=== PATIENT | female | born 1950 | race Caucasian/White ===

== ENCOUNTER 2016-11-18 15:24 | Emergency (ER) | payer MEDICARE ==
[2016-11-18 15:39] VITALS: BP 128/56
[2016-11-18] MEDS ORDERED: Lidocaine 1% 5ml(IM or SUTURE)(PAIN CLINIC) ONE (15:56)
--- NOTE | 2016-11-18 16:18 | ED Physician Documentation ---
Hand Injury - HPI Stated Complaint: FB in finger Chief Complaint: Hand Injury Additional Information: digging up a stump with gloves on, something sharp poked thru her glove and into her finger. she tried to remove at home but unsuccessful Onset: just prior to arrival Where: home Severity: mild Context: laceration Location of Injury: L fingers Modifying Factors: none Further Comments: no - ROS CONST: no problems GI/: denies: problems urinating NEURO: none CVS/RESP: none LNMP: denies: EYES/ENT: none MS/SKIN/LYMPH: none - PAST HX Past History: none Allergies/Adverse Reactions: Allergies Allergy/AdvReac Type Severity Reaction Status Date / Time Sulfa (Sulfonamide Allergy Verified 11/18/16 15:34 Antibiotics) [Sulfa(Sulfonamide Antibiotics)] Home Medications: Ambulatory Orders Medication Instructions Recorded Furosemide [Lasix] 40 mg PO QD 01/12/13 - SOCIAL HX Smoking History: non-smoker Alcohol Use: none Drug Use: none - FAMILY HX Family History: none - VITAL SIGNS Vital Signs: Vital Signs Temp Pulse Resp BP Pulse Ox 98.5 F 61 18 128/56 98 11/18/16 15:35 11/18/16 15:35 11/18/16 15:35 11/18/16 15:35 11/18/16 15:35 - REVIEWED ASSESSMENTS Nursing Assessment Reviewed: Yes Vitals Reviewed: Yes Procedures Site: L 3rd digit Blade Size: 15 I & D Procedure: sterile drapes applied Progress: alcohol prep, after 1% lidocaine digital block. Magnifying glasses required, 1mm x 4 mm sliver of glass removed after opening with 15 blade. ED Results Lab/Radiology - Orders Orders: ED Orders Category Date Time Status Lidocaine 1% 5ml(IM or SUTURE) [Xylocaine] Med 11/18/16 15:56 Discontinued 50 mg .ROUTE .STK-MED ONE Lidocaine 1% 5ml(IM or SUTURE) [Xylocaine] Med 11/18/16 16:15 Once 50 mg IJ NOW ONE Hand Injury Physical Exam - Exam General Appearance: no acute distress Hand: other (FB in tip L 3rd digit). No: no evidence of FB Wrist: normal inspection Neuro: sensation nml Vascular: no vascular compromise Tendons: tendon function nml Forearm/Elbow/Arm: uninjured above wrist Skin: warm/dry, normal color Head/ENT: nml inspection Neck/Back: nml inspection Abdomen: non-tender Discharge Clincal Impression: Foreign body of finger of left hand Qualifiers: Encounter type: initial encounter Qualified Code(s): S60.459A - Superficial foreign body of unspecified finger, initial encounter Home Medications: Ambulatory Orders Furosemide [Lasix] 40 mg PO QD 01/12/13 Condition: Good Disposition: 01 HOME, SELF-CARE Decision to Admit: NO Date of Decison to Admit: 11/18/16 Decision Time: 16:25
[2016-11-18] MEDS: Lidocaine 1% 5ml(IM or SUTURE)(PAIN CLINIC) IJ ONE (16:21)
== END 2016-11-18 16:35 | disposition home or self-care (01) ==
LOC: ED 15:24
DX: S61.243A Puncture wound with foreign body of left middle finger without damage to nail, initial encounter (principal); X58.XXXA Exposure to other specified factors, initial encounter; Y93.9 Activity, unspecified; Y99.9 Unspecified external cause status
CPT/HCPCS: 10120; 99283

== ENCOUNTER 2018-03-14 17:49 | Emergency (ER) | payer MEDICARE, OTHER ==
--- NOTE | 2018-03-14 18:05 | ED Physician Documentation ---
Upper Respiratory Symptoms - HISTORIAN Historian: patient - HPI Chief Complaint: Cough/ Upper Respiratory Additional Information: 67yo who had a cough for several days, productive of some creamy color material. Has been wheezing some. No fever or chills. Has some back chest pain from coughing. Has been rattling since this am. Has a sore thorat. Has been having some nasal drainage (clear). Has a hx of asthma, CHF (has been stable). Associated Symptoms: sweating. denies: fever, chills Worsened by Deep Breath: Yes - ROS CONST/EYES: denies: weakness LYMPH: denies: leg swelling GI/: none - PAST HX Lung Disease: asthma Surgeries/Procedures: cholecystectomy, hysterectomy, , other (cervicsl fusion, ACL repair, ) Immunizations: UTD Allergies/Adverse Reactions: Allergies Allergy/AdvReac Type Severity Reaction Status Date / Time Sulfa (Sulfonamide Allergy Verified 03/14/18 18:14 Antibiotics) [Sulfa(Sulfonamide Antibiotics)] Home Medications: Ambulatory Orders Medication Instructions Recorded Furosemide [Lasix] 40 mg PO QD 01/12/13 Azithromycin 250 mg PO D #4 tablet 03/14/18 Hydrocodone/Chlorphen P-Stirex 5 ml PO BID #120 ml 03/14/18 [Tussionex Pennkinetic Susp] - SOCIAL HX Smoking History: non-smoker Alcohol Use: none Drug Use: none - FAMILY HX Family History: other (asthma) - VITAL SIGNS Vital Signs: Vital Signs Temp Pulse Resp BP Pulse Ox 98.2 F 71 18 130/75 96 03/14/18 17:50 03/14/18 21:47 03/14/18 21:47 03/14/18 21:47 03/14/18 21:47 - REVIEWED ASSESSMENTS Nursing Assessment Reviewed: Yes Vitals Reviewed: Yes Progress - Progress Progress: patient states that she is some better with HFN treatment. ED Results Lab/Radiology - Lab Results Lab Results: Lab Results 03/14/18 03/14/18 18:35 18:35 WBC 10.40 K/ul K/ul (4.00-12.00) RBC 4.70 M/ul M/ul (3.90-5.20) Hgb 14.1 g/dL g/dL (12.0-16.0) Hct 42.1 % % (34.5-46.5) MCV 89.6 fl fl (80.0-100.0) MCH 30.1 pg pg (28.0-34.0) MCHC 33.6 g/dL g/dL (30.0-36.0) RDW 12.9 % % (11.3-14.3) Plt Count 337 K/mm3 K/mm3 (130-400) Neut % (Auto) 77.4 % % (39.0-79.0) Lymph % (Auto) 15.6 % L % (16.0-50.0) [place] % (Auto) 5.1 % % (0.0-11.0) Eos % (Auto) 0.3 % % (0.0-6.8) Baso % (Auto) 0.3 (0.0-1.5) Neut # (Auto) 8.1 # k/uL H # k/uL (1.4-7.7) Lymph # (Auto) 1.6 # k/uL # k/uL (0.6-4.0) [place] # (Auto) 0.5 # k/uL # k/uL (0.0-0.9) Eos # (Auto) 0.0 # k/uL # k/uL (0.0-0.6) Baso # (Auto) 0.0 # k/uL # k/uL (0.0-0.5) Reactive Lymphs % 1.3 % % (0.0-5.0) Reactive Lymphs # 0.1 # k/uL # k/uL (0.0-0.8) Sodium 139 mmol/L mmol/L (136-145) Potassium 3.8 mmol/L mmol/L (3.5-5.1) Chloride 102 mmol/L mmol/L (98-107) Carbon Dioxide 25 mmol/L mmol/L (22-30) BUN 22 mg/dL H mg/dL (7-17) Creatinine 0.90 mg/dL mg/dL (0.52-1.04) Estimated Creat Clear 70 Est GFR ( Amer) > 60 (60 - ) Est GFR (Non-Af Amer) > 60 (60 - ) Glucose 126 mg/dL H mg/dL (74-106) Calcium 9.1 mg/dL mg/dL (8.4-10.2) Total Bilirubin 0.4 mg/dL mg/dL (0.2-1.3) AST 25 U/L U/L (15-46) ALT 27 U/L U/L (13-69) Alkaline Phosphatase 69 U/L U/L (38-126) Total Protein 7.9 g/dL g/dL (6.3-8.2) Albumin 4.4 g/dL g/dL (3.5-5.0) - Radiology Radiology Impressions: Chest 2 views Date of Exam: March 14, 2018. History: COUGH X 5 DAYS (Hx) / ITS.REASON cough Findings: No comparison studies are provided. The cardiac and mediastinal silhouettes are normal. The lungs are clear. There is no evidence of pulmonary infiltrate or pleural effusion. The trachea is midline and aortic arch contour is normal. The pulmonary vascularity is within normal limits. Cervical fusion plate and screws are noted. There is degenerative thoracic spondylosis. Impression: No acute cardiopulmonary abnormality. - Orders Orders: ED Orders Category Date Time Status Place IV Lock 1T Care 03/14/18 18:16 Active CHEST 2VIEW [RAD] Routine Exams 03/14/18 Completed CBC/PLATELET/DIFF Routine Lab 03/14/18 18:35 Completed CMP Routine Lab 03/14/18 18:35 Completed Azithromycin [Zithromax] Med 03/14/18 19:41 Discontinued 500 mg PO NOW ONE Ipratropium/Albuterol Sulfate [Duoneb] Med 03/14/18 18:15 Discontinued 3 ml NEB NOW ONE methylPREDNISolone SOD SUCC [Solu-MEDROL] Med 03/14/18 18:15 Discontinued 125 mg IVP NOW ONE Upper Respiratory Symptoms - EXAM General Appearance: alert, mild distress EENT: nml ENT inspection, ear nml, nose nml, pharynx nml. No: pain over sinuses Neck: normal inspection, thyroid normal, supple Respiratory: no resp. distress, no pain on inspiration, speaks full sentences, respiratory distress (mild), wheezes (with forced expiration) Abdomen: non-tender, no organomegaly, nml bowel sounds, no distention CVS: reg rate & rhythm, heart sounds normal, equal pulses, no murmur Skin: color nml, no rash, warm,dry. No: rash Extremities: non-tender, normal range of motion, no edema Neuro/Psych: oriented x3, depressed mood/affect Discharge Clincal Impression: Bronchitis Prescriptions: Azithromycin 250 mg PO D #4 tablet Hydrocodone/Chlorphen P-Stirex [Tussionex Pennkinetic Susp] 5 ml PO BID #120 ml Referrals: Nate Baldwin MD [Primary Care Provider] - 2 Days Additional Instructions: Continue taking the prednisone that you have,. Take the azithromycin as directed. Take tussionex 1 tsp twice a day as needed for cough. Continue to use your inhaler as needed. If you are not improving to see your primary care provider or return to the ED. Condition: Stable Disposition: 01 HOME, SELF-CARE Decision to Admit: NO Date of Decison to Admit: 03/14/18 Decision Time: 19:46
[2018-03-14] MEDS ORDERED: methylPREDNISolone SOD SUCC 125 MG/2 ML VIAL IVP ONE (18:15)
[2018-03-14] MEDS ORDERED: IPRATROPIUM/ALBUTEROL SULFATE 3 ML AMPUL.NEB NEB ONE (18:15)
[2018-03-14 19:01] LABS: eGFR (African) > 60; eGFR (Non-African) > 60
[2018-03-14 19:03] LABS: BASOPHILS % 0.3 (0.0-1.5); EOSINOPHILS % 0.3 % (0.0-6.8); MEAN CORPUSCULAR HEMOGLOBIN 30.1 pg (28.0-34.0); MEAN CORPUSCULAR VOLUME 89.6 fl (80.0-100.0); MONOCYTES % 5.1 % (0.0-11.0); NEUTROPHILS # 8.1 # k/uL (1.4-7.7)
[2018-03-14] MEDS ORDERED: AZITHROMYCIN 250 MG TABLET PO ONE (19:41)
--- NOTE | 2018-03-14 20:13 | Diagnostic Imaging Report ---
CAREN CAST [facility] [address] [facility] [address] [address] Report Submission Date: Mar 14, 2018 6:50:17 PM CDT Patient Study Name: LAYNE MUSTAFA Date: Mar 14, 2018 6:23:15 PM CDT Modality Type: DX Gender: F Description: CHEST : 46 Institution: [facility] Physician: CAREN CAST Chest 2 views Date of Exam: March 14, 2018. History: COUGH X 5 DAYS (Hx) / ITS.REASON cough Findings: No comparison studies are provided. The cardiac and mediastinal silhouettes are normal. The lungs are clear. There is no evidence of pulmonary infiltrate or pleural effusion. The trachea is midline and aortic arch contour is normal. The pulmonary vascularity is within normal limits. Cervical fusion plate and screws are noted. There is degenerative thoracic spondylosis. Impression: No acute cardiopulmonary abnormality. Electronically signed on Mar 14, 2018 6:50:17 PM CDT by: Cari PETERS
[2018-03-14 21:50] VITALS: BP 130/75
== END 2018-03-14 20:14 | disposition home or self-care (01) ==
LOC: ED 17:49
DX: J40 Bronchitis, not specified as acute or chronic (principal)
CPT/HCPCS: 71046; 80053; 85025; J2930; 94640; 96374; S1016

== ENCOUNTER 2018-07-06 12:30 | Emergency (ER) | payer OTHER ==
[2018-07-06 13:03] LABS: BASOPHILS % 0.4 (0.0-1.5); EOSINOPHILS % 1.4 % (0.0-6.8); MEAN CORPUSCULAR HEMOGLOBIN 28.8 pg (28.0-34.0); MONOCYTES % 7.4 % (0.0-11.0); NEUTROPHILS # 4.9 # k/uL (1.4-7.7)
[2018-07-06 13:10] LABS: eGFR (Non-African) > 60
--- NOTE | 2018-07-06 13:16 | Diagnostic Imaging Report ---
FERNANDO KINSEY (INSTRUCTIONAL ASSISTANT) - ER [facility] [address] [facility] [address] [address] Report Submission Date: Jul 06, 2018 1:16:08 PM HEAD OF ART Patient Study Name: LAYNE MUSTAFA Date: Jul 06, 2018 1:02:03 PM HEAD OF ART Modality Type: CT\SR Gender: F Description: CT BRAIN W/O CONTRAST : 46 Institution: [facility] Physician: FERNANDO KINSEY ([place]) - ER HEAD CT WITHOUT CONTRAST HISTORY: Syncopal episode. Fall. COMPARISON: None TECHNIQUE: Axial images were obtained from the skullbase to the vertex without IV contrast. FINDING: The ventricular system is normal in size and configuration. There is normal parenchymal attenuation. There is no positive mass effect or intra/extra-axial hemorrhage. Visualized paranasal sinuses and mastoid air cells are clear. The calvarium is intact. IMPRESSION: NO INTRACRANIAL ABNORMALITY. Electronically signed on Jul 06, 2018 1:16:08 PM HEAD OF ART by: Delia PETERS
[2018-07-06] MEDS: fentaNYL CITRATE/PF 100 MCG/2 ML INJ. IVP ONE ×2 (13:25→14:50)
--- NOTE | 2018-07-06 13:33 | Diagnostic Imaging Report ---
FERNANDO KINSEY (CAR SPOTTER) - ER [facility] [address] [facility] [address] Report Submission Date: Jul 06, 2018 1:30:40 PM MELTER CLERK Patient Study Name: LAYNE MUSTAFA Date: Jul 06, 2018 12:42:33 PM MELTER CLERK Modality Type: DX Gender: F Description: LOWER EXTREMITY : 46 Institution: [facility] Physician: FERNANDO KINSEY (CAR SPOTTER) - ER Right ankle History: Status post fall Three views of the right ankle were obtained which demonstrate the presence of an acute spiral type fracture involving the distal fibula. The distal fracture fragment has displaced laterally by approximately 3 mm. The talar dome and ankle mortise are intact. There is soft tissue swelling about the ankle. Impression: Acute spiral type fracture of the distal fibula as described. Mild soft tissue swelling about the ankle. Electronically signed on Jul 06, 2018 1:30:40 PM MELTER CLERK by: Delia PETERS
--- NOTE | 2018-07-06 13:34 | Diagnostic Imaging Report ---
FERNANDO KINSEY (SPORTS BROADCASTING INTERNSHIP) - ER [facility] [address] [facility] [address] [address] Report Submission Date: Jul 06, 2018 1:33:28 PM SINTER MACHINE OPERATOR Patient Study Name: LAYNE MUSTAFA Date: Jul 06, 2018 12:45:39 PM SINTER MACHINE OPERATOR Modality Type: DX Gender: F Description: LOWER EXTREMITY : 46 Institution: [facility] Physician: FERNANDO KINSEY ([place]) - ER Right tibia and fibula History: Status post fall AP and lateral projections of the right tibia and fibula were obtained which demonstrate hardware associated with the knee consistent with an ACL repair. Otherwise, assessment of the knee is limited. As described in the ankle report, there is an acute and minimally displaced spiral type fracture of the distal fibula. No additional osseous abnormalities of the tibia or fibula are noted. Impression: Hardware from ACL repair. Otherwise, assessment of the knee is limited. Acute and minimally displaced spiral type fracture of the distal fibula as described in the ankle report. Electronically signed on Jul 06, 2018 1:33:28 PM SINTER MACHINE OPERATOR by: Delia PETERS
--- NOTE | 2018-07-06 14:25 | ED Physician Documentation ---
Syncope/Near Syncope - HISTORIAN Historian: patient, paramedics - HPI Stated Complaint: Syncope Chief Complaint: Syncope Witnessed: Yes Witnessed By: friend Position at Time of Episode: sitting Symptoms Prior to Episode: light-headed, palpitations ("my pulse felt low") Location of Injury: head, RLE Further Comments: yes (67 year old female patient brought in by EMS from [facility]. 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 Patient struck back of head on cement floor, C/O right ankle pain -unable to bear weight on right ankle. Denies SOB, CP, nausea at this time. Rate right ankle pain 02/27.) - ROS CONST: denies: recent illness, fever, cough, chills EYES/ENT: none GI/: denies: diarrhea, black stools, problems urinating LNMP: denies: , post menopausal, missed periods, heavy periods, abnml bleed, irregualar periods, other MS/SKIN/LYMPH: denies: joint pain, leg swelling, rash, swollen glands, ankle swelling, other NEURO/PSYCH: denies: confusion, anxiety, depression, other - PAST HX Cardiac Disease: CHF (remote history of CHF) Other History: Other (osteoporosis) Surgeries/Procedures: other (c-spine fusion) Allergies/Adverse Reactions: Allergies Allergy/AdvReac Type Severity Reaction Status Date / Time Sulfa (Sulfonamide Allergy Verified 07/06/18 13:28 Antibiotics) [Sulfa(Sulfonamide Antibiotics)] Home Medications: Ambulatory Orders Medication Instructions Recorded NK 07/06/18 - SOCIAL HX Smoking History: non-smoker - FAMILY HX Family History: denies: none - VITAL SIGNS Vital Signs: Vital Signs Temp Pulse Resp BP Pulse Ox 97.9 F 60 20 165/74 97 07/06/18 12:37 07/06/18 14:00 07/06/18 12:37 07/06/18 12:37 07/06/18 14:00 - REVIEWED ASSESSMENTS Nursing Assessment Reviewed: Yes Vitals Reviewed: Yes Progress - Progress Progress: Reviewed and xray findings with patient. Recommend 24 hour observation stay for further evaluation and monitoring; ortho consult. Patient prefer [facility]. 1350 Call to [facility], patient accepted by Dr Merchant. - EKG/XRAY/CT EKG: rhythm (SB, rate 58) ED Results Lab/Radiology - Lab Results Lab Results: Lab Results 07/06/18 07/06/18 12:42 12:42 WBC 8.90 K/ul K/ul (4.00-12.00) RBC 4.67 M/ul M/ul (3.90-5.20) Hgb 13.4 g/dL g/dL (12.0-16.0) Hct 40.2 % % (34.5-46.5) MCV 86.0 fl fl (80.0-100.0) MCH 28.8 pg pg (28.0-34.0) MCHC 33.4 g/dL g/dL (30.0-36.0) RDW 12.6 % % (11.3-14.3) Plt Count 240 K/mm3 K/mm3 (130-400) Neut % (Auto) 55.3 % % (39.0-79.0) Lymph % (Auto) 35.5 % % (16.0-50.0) [place] % (Auto) 7.4 % % (0.0-11.0) Eos % (Auto) 1.4 % % (0.0-6.8) Baso % (Auto) 0.4 (0.0-1.5) Neut # (Auto) 4.9 # k/uL # k/uL (1.4-7.7) Lymph # (Auto) 3.2 # k/uL # k/uL (0.6-4.0) [place] # (Auto) 0.7 # k/uL # k/uL (0.0-0.9) Eos # (Auto) 0.1 # k/uL # k/uL (0.0-0.6) Baso # (Auto) 0.0 # k/uL # k/uL (0.0-0.5) Sodium 143 mmol/L mmol/L (136-145) Potassium 4.0 mmol/L mmol/L (3.5-5.1) Chloride 108 mmol/L H mmol/L (98-107) Carbon Dioxide 26 mmol/L mmol/L (22-30) BUN 17 mg/dL mg/dL (7-17) Creatinine 0.90 mg/dL mg/dL (0.52-1.04) Est GFR ( Amer) > 60 (60 - ) Est GFR (Non-Af Amer) > 60 (60 - ) Glucose 115 mg/dL H mg/dL (74-106) Calcium 8.8 mg/dL mg/dL (8.4-10.2) Total Bilirubin 0.6 mg/dL mg/dL (0.2-1.3) AST 29 U/L U/L (15-46) ALT 23 U/L U/L (13-69) Alkaline Phosphatase 56 U/L U/L (38-126) Total Protein 6.7 g/dL g/dL (6.3-8.2) Albumin 4.2 g/dL g/dL (3.5-5.0) - Radiology Radiology Impressions: HEAD CT WITHOUT CONTRAST HISTORY: Syncopal episode. Fall. COMPARISON: None TECHNIQUE: Axial images were obtained from the skullbase to the vertex without IV contrast. FINDING: The ventricular system is normal in size and configuration. There is normal parenchymal attenuation. There is no positive mass effect or intra/extra-axial hemorrhage. Visualized paranasal sinuses and mastoid air cells are clear. The calvarium is intact. IMPRESSION: NO INTRACRANIAL ABNORMALITY. Electronically signed on Jul 06, 2018 1:16:08 PM WASTE/MATERIALS EXCHANGE SPECIALIST by: Delia Araiza Right ankle History: Status post fall Three views of the right ankle were obtained which demonstrate the presence of an acute spiral type fracture involving the distal fibula. The distal fracture fragment has displaced laterally by approximately 3 mm. The talar dome and ankle mortise are intact. There is soft tissue swelling about the ankle. Impression: Acute spiral type fracture of the distal fibula as described. Mild soft tissue swelling about the ankle. Electronically signed on Jul 06, 2018 1:30:40 PM WASTE/MATERIALS EXCHANGE SPECIALIST by: Delia Araiza Right tibia and fibula History: Status post fall AP and lateral projections of the right tibia and fibula were obtained which demonstrate hardware associated with the knee consistent with an ACL repair. Otherwise, assessment of the knee is limited. As described in the ankle report, there is an acute and minimally displaced spiral type fracture of the distal fibula. No additional osseous abnormalities of the tibia or fibula are noted. Impression: Hardware from ACL repair. Otherwise, assessment of the knee is limited. Acute and minimally displaced spiral type fracture of the distal fibula as described in the ankle report. Electronically signed on Jul 06, 2018 1:33:28 PM WASTE/MATERIALS EXCHANGE SPECIALIST by: Delia Araiza - Orders Orders: ED Orders Category Date Time Status Continuous EKG monitoring Q30M Care 07/06/18 12:43 Active Continuous Pulse Oximetry Q30M Care 07/06/18 12:43 Active Short Leg Splint 1T Care 07/06/18 13:43 Completed Short Leg Splint 1T Care 07/06/18 14:28 Ordered ANKLE 3 VIEWS OR MORE [RAD] Stat Exams 07/06/[address] BRAIN W/O CONTRAST Stat Exams 07/06/18 Completed TIBIA & FIBULA 2 VIEW [RAD] Stat Exams 07/06/18 Completed CBC/PLATELET/DIFF Stat Lab 07/06/18 12:42 Completed CMP Stat Lab 07/06/18 12:42 Completed TROPONIN I (cTnI) Stat Lab 07/06/18 12:46 Received fentaNYL CITRATE/PF [Duragesic] Med 07/06/18 12:45 Discontinued 50 mcg IVP NOW ONE EKG WITH COMPARISON Stat Ther 07/06/18 12:43 Ordered Syncope Physical Exam - Physical Exam General Appearance: mild distress EENT: nml eye inspection, PERRL, nml ENT inspection, pharynx nml, no CSF leak, other (hematoma noted on posterior parietal area. ) Neck/Back: neck supple, non-tender, no carotid bruit Respiratory: no resp distress, chest non-tender, breath sounds normal CVS: reg rate & rhythm (Sinus rhythm/Sinus frances on monitor), heart sounds normal, equal pulses, no murmur, no gallop, PMI nml, no JVD, no friction rub Abdomen: non-tender, no organomegaly, nml bowel sounds, no distention Skin: normal color, warm/dry, NR, INT, PAL, DR - Neuro/Psych Higher Functions: alert, oriented x3, no evidence of acute CVA, mood/affect nml Cranial Nerves: nml as tested Cerebellar: nml as tested, nml gait Sensorimotor: nml motor response, nml sensory response Discharge Clincal Impression: Closed head injury with brief loss of consciousness Syncope Qualifiers: Syncope type: unspecified Qualified Code(s): R55 - Syncope and collapse Fibula fracture Qualifiers: Encounter type: initial encounter Fibula location: shaft Fracture type: closed Fracture morphology: spiral Fracture alignment: displaced Laterality: right Qualified Code(s): S82.441A - Displaced spiral fracture of shaft of right fibula, initial encounter for closed fracture Condition: Stable Disposition: 02 XFER SHT-TRM HOSP Decision to Admit: NO Decision Time: 14:48
[2018-07-06 15:06] VITALS: BP 119/84
== END 2018-07-06 15:05 | disposition short-term general hospital (02) ==
LOC: ED 12:30
DX: S06.9X9A Unspecified intracranial injury with loss of consciousness of unspecified duration, initial encounter (principal); S82.441A Displaced spiral fracture of shaft of right fibula, initial encounter for closed fracture; W19.XXXA Unspecified fall, initial encounter; Y93.G3 Activity, cooking and baking; Y92.29 Other specified public building as the place of occurrence of the external cause
CPT/HCPCS: 29515; 36415; 70450; 73590; 73610; 80053; 84484; 85025; 93005; 96374; 96376; 99285; J3010; S1016

== ENCOUNTER 2019-03-12 16:23 | Outpatient (CLI) | payer OTHER ==
--- NOTE | 2019-03-12 16:46 | Diagnostic Imaging Report ---
ROSSY KINCAID [facility] [address] [address] [facility] [address] [address] Report Submission Date: Mar 12, 2019 4:40:02 PM CDT Patient Study Name: LAYNE MUSTAFA Date: Mar 12, 2019 4:24:18 PM CDT Modality Type: DX Gender: F Description: ANKLE 3 VIEWS OR MORE : 46 Institution: [facility] Physician: ROSSY KINCAID Exam: Left ankle. History: Injury 2 months ago. AP, lateral and mortise view of the left ankle are submitted. No signs of acute fracture or dislocation is seen. Ankle mortise is adequately maintained. No soft tissue abnormality is identified. Impression: No bony abnormality. Electronically signed on Mar 12, 2019 4:40:02 PM CDT by: Simone PETERS
== END 2019-03-12 16:25 ==
LOC: RAD 16:23
PROVIDERS: ATTEND Family Medicine
DX: M25.572 Pain in left ankle and joints of left foot (principal)
CPT/HCPCS: 73610